=== PATIENT | female | born 1935 | race Caucasian/White ===

== ENCOUNTER 2017-05-03 11:38 | Inpatient (IN) | payer OTHER, MEDICARE ==
[2017-05-03] VITALS (15 sets, daily range): BP systolic 139–194; BP diastolic 64–99; PULSE 103–127; RESP 18–22; TEMP 97.6–98; O2SAT 86–95
[~2017-05-03] VITALS: Ht 165.1 cm; Wt 77.7 kg
[2017-05-03] MEDS ORDERED: methylPREDNISolone SOD SUCC 125 MG/2 ML VIAL IV PUSH ONE (12:15)
--- NOTE | 2017-05-03 12:16 | PD ---
HPI . Shortness of breath Chief Complaint: Respiratory Symptoms Time Seen by Provider: 12:02 Travel History International Travel<30 days: No Contact w/Intl Traveler<30days: No Traveled to known affect area: No History of Present Illness HPI This patient presents with about a week long history of cough and shortness of breath. She states that her primary care provider called her in a Z-Taurus taken and completed without relief. She states that her weakness and shortness of breath has been so severe that she has been confined to bed for the past several days. She has not noticed a fever. She does report some sputum production. She has not noted any modifying factors. [facility] Social History Tobacco Use: No Allergies-Medications (Allergen,Severity, Reaction): Coded Allergies: No Known Allergies (Verified Allergy, Unknown, 05/03/17) Reported Meds & Prescriptions Reported Meds & Active Scripts Active Reported Citalopram (Citalopram Hydrobromide) 10 Mg Tab 10 Mg PO DAILY Review of Systems Except as stated in HPI: all other systems reviewed are Neg General / Constitutional: No: Fever, Chills Cardiovascular: No: Chest Pain or Discomfort Respiratory: Positive: Cough, Shortness of Breath, Wheezing Neurologic: Positive: Weakness Physical Exam Narrative GENERAL: Awake and alert and in no acute distress. SKIN: Warm and dry. HEAD: Normocephalic/atraumatic. EYES: Pupils are equal. Extraocular movements are intact. NECK: Normal range of motion. CARDIOVASCULAR: Regular rate and rhythm. Sinus tachycardia at about 114. RESPIRATORY: Lungs are tight with diffuse inspiratory and expiratory wheezing. MUSCULOSKELETAL: Atraumatic. There is no peripheral edema. NEUROLOGICAL: Nonfocal. PSYCHIATRIC: Appropriate mood and affect. Data Data Last Documented VS Vital Signs Date Time Temp Pulse Resp B/P (MAP) Pulse Ox O2 Delivery O2 Flow Rate FiO2 05/03/17 15:15 118 20 157/74 (101) 94 Nasal Cannula 2.00 05/03/17 11:55 97.8 Orders Orders Complete Blood Count With Diff (05/03/17 12:09) Basic Metabolic Panel (Bmp) (05/03/17 12:09) B-Type Natriuretic Peptide (05/03/17 12:09) Troponin I (05/03/17 12:09) Blood Culture (05/03/17 12:09) Iv Access Insert/Monitor (05/03/17 12:09) Electrocardiogram (05/03/17 12:09) Ecg Monitoring (05/03/17 12:09) Oximetry (05/03/17 12:09) Oxygen Administration (05/03/17 12:09) Chest, Single Ap (05/03/17 12:09) Sodium Chloride 0.9% Flush (Ns Flush) (05/03/17 12:15) Methylprednisolone So Succ Inj (Solumedr (05/03/17 12:15) Albuterol-Ipratropium Neb (Duoneb Neb) (05/03/17 12:15) Albuterol-Ipratropium Neb (Duoneb Neb) (05/03/17 14:30) Resp Mdi/Instruction (05/03/17 14:18) Admit To Inpatient (05/03/17 ) Vital Signs (Adult) PJ.Q4H (05/03/17 16:10) Activity Oob With Assistance (05/03/17 16:10) Lunchroom Mother / Telemetry PJ.Q8H (05/03/17 16:10) Inpatient Certification (05/03/17 ) Admit Order (Ed Use Only) (05/03/17 ) Vital Signs (Adult) Q4H (05/03/17 16:10) Diet Heart Healthy (05/03/17 Dinner) Activity Oob With Assistance (05/03/17 16:10) Notify Dr: Other (05/03/17 16:10) Labs Laboratory Tests Test 05/03/17 12:25 White Blood Count 6.4 TH/MM3 Red Blood Count 5.26 MIL/MM3 Hemoglobin 14.8 GM/DL Hematocrit 45.9 % Mean Corpuscular Volume 87.3 FL Mean Corpuscular Hemoglobin 28.1 PG Mean Corpuscular Hemoglobin Concent 32.2 % Red Cell Distribution Width 12.9 % Platelet Count 179 TH/MM3 Mean Platelet Volume 9.1 FL Neutrophils (%) (Auto) 74.2 % Lymphocytes (%) (Auto) 13.8 % Monocytes (%) (Auto) 11.1 % Eosinophils (%) (Auto) 0.4 % Basophils (%) (Auto) 0.5 % Neutrophils # (Auto) 4.8 TH/MM3 Lymphocytes # (Auto) 0.9 TH/MM3 Monocytes # (Auto) 0.7 TH/MM3 Eosinophils # (Auto) 0.0 TH/MM3 Basophils # (Auto) 0.0 TH/MM3 CBC Comment DIFF FINAL Differential Comment Blood Urea Nitrogen 9 MG/DL Creatinine 0.54 MG/DL Random Glucose 118 MG/DL Calcium Level 8.7 MG/DL Sodium Level 136 MEQ/L Potassium Level 3.7 MEQ/L Chloride Level 98 MEQ/L Carbon Dioxide Level 31.1 MEQ/L Anion Gap 7 MEQ/L Estimat Glomerular Filtration Rate 109 ML/MIN Troponin I LESS THAN 0.02 NG/ML B-Type Natriuretic Peptide 93 PG/ML [facility] Medical Decision Making Medical Screen Exam Complete: Yes Emergency Medical Condition: Yes Medical Record Reviewed: Yes (this patient's only visits in our system have been for mammograms.) Interpretation(s) EKG shows a sinus rhythm with a rate of 101. No ST segment elevation or depression Differential Diagnosis Differential diagnosis of dyspnea includes but is not limited to congestive heart failure, pneumonia, wheezing, pneumothorax, pulmonary embolism Narrative Course This patient presents with a weeklong history of dyspnea. She is wheezing on exam. She will be treated with Solu-Medrol and stacked nebs. In the meantime, she will be evaluated for possible pneumonia for possible CHF. Last Impressions Chest X-Ray 05/03/17 1209 Signed Impressions: Service Date/Time: Wednesday, May 03, 2017 12:22 - CONCLUSION: Mild interstitial prominence at the bases. Kash Malagon MD CBC & BMP Diagram 05/03/17 12:25 Calcium Level 8.7 trop < 0.02 BNP 93 Patient was reexamined. Her sats are 92% on 2 L of oxygen. I turned off the oxygen and her sats held at about 92%. Her lungs are still tight but air movement is improved. Wheezing is louder. I have offered admission. The patient would prefer to be discharged to home. Therefore, I have ordered 3 more nebs. I will reassess her following the nebs. The patient's sats dropped shortly after her oxygen was discontinued. She was placed back on oxygen. She was reexamined following the second set of stacked nebs. Her air movement has improved but she is still retracting and is wheezing. Her oxygen saturation on 2 L of oxygen remained 92%. At this point, she is amenable to admission. Diagnosis Primary Impression: Bronchospasm Admitting Information Admitting Physician Requests: Admit Condition: Stable Huong Deleon MD May 03, 2017 12:16
[2017-05-03] MEDS: RESP: ALBUTEROL 2.5 MG/IPRATROPIUM 0.5 MG NEB (SCH) INH ×3 (12:17→14:38)
[2017-05-03] MEDS: SODIUM CHLORIDE 0.9% FLUSH 10 ML FLUSH IVF PRN (12:33)
[2017-05-03 12:44] LABS: AUTOMATED NEUTROPHIL # 4.8 TH/MM3 (1.8-7.7); BASOPHIL % 0.5 % (0.0-2.0); EOSINOPHIL % 0.4 % (0.0-4.0); HEMATOCRIT 45.9 % (35.0-46.0); HEMOGLOBIN 14.8 GM/DL (11.6-15.3); LYMPH % 13.8 % (9.0-44.0); LYMPHOCYTE # 0.9 TH/MM3 (1.0-4.8); MEAN CELL VOLUME 87.3 FL (80.0-100.0); MEAN CORPUSCULAR HEMOGLOBIN 28.1 PG (27.0-34.0); MEAN CORPUSCULAR HGB CONC 32.2 % (32.0-36.0); MEAN PLATELET VOLUME 9.1 FL (7.0-11.0); MONO % 11.1 % (0.0-8.0); MONOCYTE # 0.7 TH/MM3 (0-0.9); NEUT % 74.2 % (16.0-70.0); PLATELET COUNT 179 TH/MM3 (150-450); RED BLOOD COUNT 5.26 MIL/MM3 (4.00-5.30); RED CELL DISTRIBUTION WIDTH 12.9 % (11.6-17.2); WHITE BLOOD COUNT 6.4 TH/MM3 (4.0-11.0)
[2017-05-03 12:57] LABS: CHLORIDE 98 MEQ/L (98-107); SODIUM (NA) 136 MEQ/L (136-145)
[2017-05-03 12:59] LABS: CALCIUM 8.7 MG/DL (8.5-10.1)
[2017-05-03 13:00] LABS: BICARBONATE 31.1 MEQ/L (21.0-32.0); BLOOD UREA NITROGEN 9 MG/DL (7-18); GLUCOSE,RANDOM 118 MG/DL (74-106)
--- NOTE | 2017-05-03 13:00 | RADRPT ---
EXAM DATE/TIME: 05/03/2017 12:22 [facility] COMPARISON: No previous studies available for comparison. INDICATIONS : Short of breath and cough MEDICAL HISTORY : None. SURGICAL HISTORY : None. ENCOUNTER: Initial ACUITY: 1 week PAIN SCORE: 0/10 LOCATION: Bilateral chest FINDINGS: The heart size is normal. There is mild prominence of the interstitium in the bases. Lungs appear oth erwise clear. No effusion is seen. CONCLUSION: Mild interstitial prominence at the bases. Kash Malagon MD on May 03, 2017 at 12:57 Board Certified Radiologist. This report was verified electronically.
[2017-05-03 13:03] LABS: CREATININE 0.54 MG/DL (0.50-1.00); GLOMERULAR FILTRATION RATE 109 ML/MIN (>89)
[2017-05-03 13:08] LABS: TROPONIN I LESS THAN 0.02 NG/ML (0.02-0.05)
[2017-05-03] MEDS ORDERED: CITA10TA4 PO (13:16)
[2017-05-03] MEDS ORDERED: BISACODYL 10 MG SUPP RECTAL PRN (17:00)
[2017-05-03] MEDS ORDERED: NALOXONE HCL 0.4 MG/ML AMP IV PUSH PRN (17:00)
[2017-05-03] MEDS ORDERED: ONDANSETRON HCL 4 MG/2 ML VIAL IVP PRN (17:00)
[2017-05-03] MEDS ORDERED: ACETAMINOPHEN 325 MG TAB PO PRN (17:00)
[2017-05-03] MEDS ORDERED: SENNOSIDES 8.6 MG TAB PO PRN (17:00)
[2017-05-03] MEDS ORDERED: MAGNESIUM HYDROXIDE SUSP 30 ML CUP PO PRN (17:00)
[2017-05-03] MEDS ORDERED: PILL SPLITTER OTHER PRN (17:15)
--- NOTE | 2017-05-03 17:44 | HHI.HP ---
[facility] Primary Care Physician Priscilla Pastor Do, MD Admission Diagnosis Bronchitis with bronchospasm Diagnoses: (1) Bronchospasm Diagnosis: Principal Chief Complaint: Shortness of breath and productive cough Travel History International Travel<30 Days: No Contact w/Intl Traveler <30 Da: No Traveled to Known Affected Are: No History of Present Illness This is a pleasant 82-year-old female with a known medical history of breast cancer and COPD with history of tobacco use presented to the ED with complaints of worsening shortness of breath and productive cough. Patient states the symptoms have been occurring for two weeks now, has seen her primary care provider who prescribed her azithromycin. Patient completed her antibiotic last week and states that she felt even worse. Patient does admit to weakness, states that she's been lying in bed for several days. Lives at home with her . Denies any recent fever, chills, nausea, vomiting, diarrhea, chest pain, abdominal pain, dysuria. States she hasn't ate or drank much for the past week due to poor appetite and weakness. Review of Systems Constitutional: COMPLAINS OF: Chills, DENIES: Fever Eyes: DENIES: Blurred vision, Diplopia Ears, nose, mouth, throat: DENIES: Hearing loss Respiratory: COMPLAINS OF: Sputum production, Shortness of breath Cardiovascular: DENIES: Chest pain, Palpitations Gastrointestinal: DENIES: Abdominal pain, Black stools, Bloody stools, Constipation, Diarrhea, Nausea, Vomiting Integumentary: DENIES: Abnormal pigmentation Hematologic/lymphatic: DENIES: Bruising Immunologic/allergic: DENIES: Eczema Neurologic: DENIES: Abnormal gait Psychiatric: COMPLAINS OF: Anxiety Except as stated in HPI: all other systems reviewed are Neg Past Family Social History Past Medical History History of tobacco abuse History of COPD History of breast cancer, lumpectomy with no radiation or chemotherapy. Past Surgical History Left lumpectomy for history of breast cancer Reported Medications Active Reported Citalopram (Citalopram Hydrobromide) 10 Mg Tab 10 Mg PO DAILY for insomnia Allergies: Coded Allergies: No Known Allergies (Verified Allergy, Unknown, 05/03/17) Active Ordered Medications Current Medications Medications (Trade) Dose Ordered Sig/Erica Route Start Time Stop Time Status Last Admin (NS Flush) 2 ml UNSCH PRN IVF 05/03/17 12:15 05/03/17 12:33 (Tylenol) 650 mg Q4H PRN PO 05/03/17 17:00 (Zofran Inj) 4 mg Q6H PRN IVP 05/03/17 17:00 (Narcan Inj) 0.4 mg UNSCH PRN IV PUSH 05/03/17 17:00 (Kimmy-Colace) 1 tab BID PO 05/03/17 21:00 (Milk Of Magnesia Liq) 30 ml Q12H PRN PO 05/03/17 17:00 (Senokot) 17.2 mg Q12H PRN PO 05/03/17 17:00 (Dulcolax Supp) 10 mg DAILY PRN RECTAL 05/03/17 17:00 (CeleXA) 10 mg DAILY PO 05/04/17 09:00 (Pill Splitter) 1 ea UNSCH PRN OTHER 05/03/17 17:15 Family History Maternal medical history significant for diabetes. Father was healthy. Social History Patient denies any current tobacco use, states she quit smoking thirty years ago. Denies any alcohol or illicit drug use. Physical Exam Vital Signs Vital Signs Date Time Temp Pulse Resp B/P (MAP) Pulse Ox O2 Delivery O2 Flow Rate FiO2 05/03/17 16:21 97.6 122 22 143/81 (101) 93 Nasal Cannula 2.00 05/03/17 15:15 118 20 157/74 (101) 94 Nasal Cannula 2.00 05/03/17 15:02 Nasal Cannula 2.00 05/03/17 14:51 107 167/90 (115) 93 Nasal Cannula 2.00 05/03/17 14:35 86 Room Air 05/03/17 13:48 106 18 154/86 (108) 93 Nasal Cannula 2.00 05/03/17 12:45 105 20 167/78 (107) 93 Nasal Cannula 2.00 05/03/17 12:05 Nasal Cannula 2.00 05/03/17 12:05 93 Room Air 05/03/17 12:05 91 Room Air 05/03/17 11:55 97.8 114 18 194/84 (120) 88 05/03/17 11:40 103 20 169/99 (122) 94 Room Air Physical Exam GENERAL: Well-nourished, well-developed patient in NAD. On supplemental O2 SKIN: Warm and dry. No rash. HEAD: Normocephalic. Atraumatic. EYES: Pupils equal and round. No scleral icterus. No injection or drainage. ENT: No nasal bleeding or discharge. Mucous membranes pink and moist. NECK: Supple. Trachea midline. CARDIOVASCULAR: Tachycardic. S1, S2 noted. No murmur appreciated. RESPIRATORY: No accessory muscle use. Diffuse expiratory wheezing. Breath sounds equal bilaterally. GASTROINTESTINAL: Abdomen soft, non-tender, nondistended. Normoactive bowel sounds x4. MUSCULOSKELETAL: No obvious deformities. Extremities without clubbing, cyanosis , or edema. NEUROLOGICAL: Awake and alert. No obvious cranial nerve deficits. Motor grossly within normal limits. 5/5 muscle strength in bilateral upper and lower extremities. Normal speech. PSYCHIATRIC: Appropriate mood and affect; insight and judgment normal. Laboratory Laboratory Tests Test 05/03/17 12:25 White Blood Count 6.4 Red Blood Count 5.26 Hemoglobin 14.8 Hematocrit 45.9 Mean Corpuscular Volume 87.3 Mean Corpuscular Hemoglobin 28.1 Mean Corpuscular Hemoglobin Concent 32.2 Red Cell Distribution Width 12.9 Platelet Count 179 Mean Platelet Volume 9.1 Neutrophils (%) (Auto) 74.2 Lymphocytes (%) (Auto) 13.8 Monocytes (%) (Auto) 11.1 Eosinophils (%) (Auto) 0.4 Basophils (%) (Auto) 0.5 Neutrophils # (Auto) 4.8 Lymphocytes # (Auto) 0.9 Monocytes # (Auto) 0.7 Eosinophils # (Auto) 0.0 Basophils # (Auto) 0.0 CBC Comment DIFF FINAL Differential Comment Blood Urea Nitrogen 9 Creatinine 0.54 Random Glucose 118 Calcium Level 8.7 Sodium Level 136 Potassium Level 3.7 Chloride Level 98 Carbon Dioxide Level 31.1 Anion Gap 7 Estimat Glomerular Filtration Rate 109 Troponin I LESS THAN 0.02 B-Type Natriuretic Peptide 93 Date/Time Source Procedure Growth Status 05/03/17 12:25 Blood Peripheral Aerobic Blood Culture Pending Received 05/03/17 12:25 Blood Peripheral Anaerobic Blood Culture Pending Received Result Diagram: 05/03/17 1225 05/03/17 1225 Imaging Last Impressions Chest X-Ray 05/03/17 1209 Signed Impressions: Service Date/Time: Wednesday, May 03, 2017 12:22 - CONCLUSION: Mild interstitial prominence at the bases. Kash Malagon MD Septic Shock Reassessment Septic shock perfusion: reassessment completed Caprini VTE Risk Assessment Caprini VTE Risk Assessment: Mod/High Risk (score >= 2) Caprini Risk Assessment Model Point Value = 1 Point Value = 2 Point Value = 3 Point Value = 5 Age 41-60 Minor surgery BMI > 25 kg/m2 Swollen legs Varicose veins or History of unexplained or recurrent spontaneous Oral contraceptives or hormone replacement Sepsis (< 1 month) Serious lung disease, including pneumonia (< 1 month) Abnormal pulmonary function Acute myocardial infarction Congestive heart failure (< 1 month) History of inflammatory bowel disease Medical patient at bed rest Age 61-74 Arthroscopic surgery Major open surgery (> 45 min) Laparoscopic surgery (> 45 min) Malignancy Confined to bed (> 72 hours) Immobilizing plaster cast Central venous access Age >= 75 History of VTE Family history of VTE Factor V Leiden Prothrombin [id number] Lupus anticoagulant Anticardiolipin antibodies Elevated serum homocysteine Heparin-induced thrombocytopenia Other congenital or acquired thrombophilia Stroke (< 1 month) Elective arthroplasty Hip, pelvis, or leg fracture Acute spinal cord injury (< 1 month) Prophylaxis Regimen Total Risk Factor Score Risk Level Prophylaxis Regimen 0-1 Low Early ambulation 2 Moderate Order ONE of the following: *Sequential Compression Device (SCD) *Heparin 5000 units SQ BID 3-4 Higher Order ONE of the following medications: *Heparin 5000 units SQ TID *Enoxaparin/Lovenox 40 mg SQ daily (WT < 150 kg, CrCl > 30 mL/min) *Enoxaparin/Lovenox 30 mg SQ daily (WT < 150 kg, CrCl > 10-29 mL/min) *Enoxaparin/Lovenox 30 mg SQ BID (WT < 150 kg, CrCl > 30 mL/min) AND/OR *Sequential Compression Device (SCD) 5 or more Highest Order ONE of the following medications: *Heparin 5000 units SQ TID (Preferred with Epidurals) *Enoxaparin/Lovenox 40 mg SQ daily (WT < 150 kg, CrCl > 30 mL/min) *Enoxaparin/Lovenox 30 mg SQ daily (WT < 150 kg, CrCl > 10-29 mL/min) *Enoxaparin/Lovenox 30 mg SQ BID (WT < 150 kg, CrCl > 30 mL/min) AND *Sequential Compression Device (SCD) Assessment and Plan Problem List: (1) Bronchospasm ICD Code: J98.01 - Acute bronchospasm Status: Acute Plan: Rule out PE vs pneumonia vs acute bronchitis Patient has been placed on supplemental O2, 2 L nasal cannula. Chest x-ray reviewed showing mild interstitial prominence at the bases. Patient is afebrile. White blood cell within normal limits. CBC and BMP reviewed and essentially unremarkable. Repeat labs in a.m. BNP 93. Treated outpatient with azithromycin. Patient given one-time dose of Solu-Medrol 125 mg 1. Will start on DuoNeb's as needed and scheduled. Will continue IV steroids. Started on IV antibiotics. Monitor for infection. Dr. Gilbert recommendations for procalcitonin level r/o infection. Follow. Supplemental O2 as needed. Blood cultures ordered and pending. Follow growth. Tachycardia present, most likely due to dehydration, will start on IV fluids. Will check a d-dimer to rule out possibility of PE. Continue to follow. Continue cardiac telemetry. PT evaluation, appreciate input and recommendations. DVT prophylaxis: SCDs. Heparin. Physician Certification 2 Midnight Certification Type: Admission for Inpatient Services Order for Inpatient Services The services are ordered in accordance with Medicare regulations or non- Medicare payer requirements, as applicable. In the case of services not specified as inpatient-only, they are appropriately provided as inpatient services in accordance with the 2-midnight benchmark. Estimated LOS (days): 2 2 days is the estimated time the patient will need to remain in the hospital, assuming treatment plan goals are met and no additional complications. Post-Hospital Plan: Home Keya Callahan May 03, 2017 17:43
[2017-05-03] MEDS ORDERED: VANCOMYCIN INJ 1,000 MG in SODIUM CHLOR 0.9% 250 ML INJ 250 ML IV SCH (17:45)
[2017-05-03] MEDS ORDERED: Vancomycin Consult Pharmacy 1 EA OTHER SCH (17:45)
[2017-05-03] MEDS ORDERED: RESP: ALBUTEROL 2.5 MG/IPRATROPIUM 0.5 MG NEB (PRN) NEB (18:00)
[2017-05-03] MEDS ORDERED: VANCOMYCIN 1,500 MG/NS 500 ML IV SCH ×2 (18:00)
[2017-05-03] MEDS: LEVOFLOXACIN 750 MG PREMIX INJ 150 ML IV SCH (18:06)
[2017-05-03] MEDS: methylPREDNISolone SOD SUCC 40 MG/1 ML VIAL IV PUSH SCH (18:06)
[2017-05-03] MEDS: SODIUM CHLOR 0.9% 1000 ML INJ 1,000 ML IV SCH (18:07)
[2017-05-03] MEDS: RESP: ALBUTEROL 2.5 MG/IPRATROPIUM 0.5 MG NEB (SCH) NEB (19:25)
[2017-05-03] MEDS: DOCUSATE SODIUM 50 MG/SENNA 8.6 MG TAB PO SCH (20:10)
[2017-05-03] MEDS: HEPARIN SODIUM - SQ 10,000 UNITS/ML VIAL SQ SCH (20:11)
[2017-05-04] VITALS (9 sets, daily range): BP systolic 128–175; BP diastolic 70–89; PULSE 40–107; RESP 18–20; TEMP 96–99.3; O2SAT 90–95
[2017-05-04] MEDS: methylPREDNISolone SOD SUCC 40 MG/1 ML VIAL IV PUSH SCH ×4 (00:14→18:36)
[2017-05-04] MEDS ORDERED: cloNIDine HCL 0.1 MG TAB PO ONE (05:45)
[2017-05-04] MEDS ORDERED: RESP: ALBUTEROL 2.5 MG/IPRATROPIUM 0.5 MG NEB (PRN) NEB (05:45)
[2017-05-04] MEDS: SODIUM CHLOR 0.9% 1000 ML INJ 1,000 ML IV SCH (05:48)
[2017-05-04 06:45] LABS: AUTOMATED NEUTROPHIL # 3.8 TH/MM3 (1.8-7.7); EOSINOPHIL % 0.5 % (0.0-4.0); HEMATOCRIT 41.2 % (35.0-46.0); HEMOGLOBIN 13.4 GM/DL (11.6-15.3); LYMPH % 12.5 % (9.0-44.0); LYMPHOCYTE # 0.5 TH/MM3 (1.0-4.8); MEAN CELL VOLUME 86.2 FL (80.0-100.0); MEAN CORPUSCULAR HEMOGLOBIN 28.2 PG (27.0-34.0); MEAN CORPUSCULAR HGB CONC 32.7 % (32.0-36.0); MEAN PLATELET VOLUME 9.3 FL (7.0-11.0); MONO % 3.3 % (0.0-8.0); MONOCYTE # 0.1 TH/MM3 (0-0.9); NEUT % 83.7 % (16.0-70.0); PLATELET COUNT 171 TH/MM3 (150-450); RED BLOOD COUNT 4.78 MIL/MM3 (4.00-5.30); RED CELL DISTRIBUTION WIDTH 12.6 % (11.6-17.2); WHITE BLOOD COUNT 4.4 TH/MM3 (4.0-11.0)
[2017-05-04 06:56] LABS: BICARBONATE 31.2 MEQ/L (21.0-32.0); CALCIUM 8.2 MG/DL (8.5-10.1)
[2017-05-04 07:00] LABS: CREATININE 0.44 MG/DL (0.50-1.00)
[2017-05-04] MEDS: RESP: ALBUTEROL 2.5 MG/IPRATROPIUM 0.5 MG NEB (SCH) NEB ×3 (07:49→20:06)
[2017-05-04] MEDS: CITALOPRAM HYDROBROMIDE 20 MG TAB PO SCH (09:19)
[2017-05-04] MEDS: DOCUSATE SODIUM 50 MG/SENNA 8.6 MG TAB PO SCH ×2 (09:19→21:56)
[2017-05-04] MEDS: HEPARIN SODIUM - SQ 10,000 UNITS/ML VIAL SQ SCH ×2 (09:19→21:56)
--- NOTE | 2017-05-04 12:23 | HHI.PR ---
Subjective Remarks Patient seen today in follow for COPD with acute exacerbation for respiratory failure secondary hypoxemia Feels a bit better today. Objective Vitals Vital Signs Date Time Temp Pulse Resp B/P (MAP) Pulse Ox O2 Delivery O2 Flow Rate FiO2 05/04/17 08:00 97.4 96 20 166/89 (114) 94 05/04/17 07:30 92 Nasal Cannula 4.00 05/04/17 04:00 99.3 101 18 175/83 (113) 90 05/04/17 00:00 97.1 40 18 157/88 (111) 94 05/03/17 23:00 127 05/03/17 22:00 97.9 118 20 156/92 (113) 90 05/03/17 20:00 92 Nasal Cannula 3.00 05/03/17 19:25 88 Nasal Cannula 3.00 05/03/17 18:56 98.0 125 18 174/80 (111) 92 05/03/17 18:48 125 22 139/64 (89) 94 05/03/17 16:21 97.6 122 22 143/81 (101) 93 Nasal Cannula 2.00 05/03/17 15:15 118 20 157/74 (101) 94 Nasal Cannula 2.00 05/03/17 15:02 Nasal Cannula 2.00 05/03/17 15:00 95 Nasal Cannula 2.00 05/03/17 14:51 107 167/90 (115) 93 Nasal Cannula 2.00 05/03/17 14:35 86 Room Air 05/03/17 13:48 106 18 154/86 (108) 93 Nasal Cannula 2.00 05/03/17 12:45 105 20 167/78 (107) 93 Nasal Cannula 2.00 I/O 05/03/17 05/03/17 05/03/17 05/04/17 05/04/17 05/04/17 07:00 15:00 23:00 07:00 15:00 23:00 Intake Total 1906 ml 755 ml Output Total 300 ml Balance 1906 ml 755 ml -300 ml Intake Oral 240 ml IV Total 1906 ml 515 ml Output Urine Total 300 ml # Voids 1 # Bowel Movements 0 Result Diagram: 05/04/1744405/04/17444 Objective Remarks GENERAL: This is a well-nourished, well-developed patient, in no apparent distress. CARDIOVASCULAR: Regular rate and rhythm without murmurs, gallops, or rubs. RESPIRATORY: Scattered wheezes without rhonchi GASTROINTESTINAL: Abdomen soft, non-tender, nondistended. Normal active bowel sounds MUSCULOSKELETAL: Extremities without clubbing, cyanosis, or edema. NEURO: Alert & Oriented x4 to person, place, time, situation. Moves all ext x4 A/P Problem List: (1) COPD (chronic obstructive pulmonary disease) ICD Code: J44.9 - Chronic obstructive pulmonary disease, unspecified Plan: Likely with pneumonia and bronchitis continue IV Levaquin, wean IV steroids Pulmonary toilet with bronchodilators We'll check walk test Discharge Planning Likely discharge in a.m. on oral antibiotics and oral steroids Margo Thomason MD May 04, 2017 12:23
--- NOTE | 2017-05-04 13:08 | RADRPT ---
EXAM DATE/TIME: 05/04/2017 12:16 [facility] COMPARISON: CHEST SINGLE AP, May 03, 2017, 12:22. INDICATIONS : Dyspnea. DOSE: 8.5 mCi Tc99m MAA IV 1.7 mCi Tc99m DTPA aerosol MEDICAL HISTORY : Carcinoma, breast. Chronic obstructive pulmonary disease. SURGICAL HISTORY : Lumpectomy. ENCOUNTER: Initial ACUITY: 1 day PAIN SCALE: 0/10 LOCATION: chest TECHNIQUE: Following five minutes of tidal breathing of DTPA aerosol, planar images of the lungs were performed in eight projections. The patient was then injected with MAA, and eight-view perfusio n scan was performed. FINDINGS: There is a inhomogeneous pattern of aerosol delivery to the periphery of both lungs. No focal ventil atory defects are seen. The perfusion lung scan demonstrates a homogenous pattern of uptake in both lungs. No segmental or s ubsegmental defects are seen. CONCLUSION: Low probability of pulmonary embolization Julio Arthur MD on May 04, 2017 at 13:03 Board Certified Radiologist. This report was verified electronically.
[2017-05-04] MEDS: LEVOFLOXACIN 750 MG PREMIX INJ 150 ML IV SCH (18:36)
[2017-05-05] MEDS: methylPREDNISolone SOD SUCC 40 MG/1 ML VIAL IV PUSH SCH ×3 (00:20→13:56)
[2017-05-05] MEDS: SODIUM CHLORIDE 0.9% FLUSH 10 ML FLUSH IVF PRN ×2 (00:20→06:12)
--- NOTE | 2017-05-05 01:19 | EKG ---
Date Performed: 05/03/2017 Time Performed: 12:15:39 PTAGE: 82 years EKG: SINUS TACHYCARDIA ABNORMAL RHYTHM ECG NO PREVIOUS TRACING DOCTOR: Dominguez Rawls Interpretating Date/Time 05/05/2017 01:16:59
[2017-05-05 04:00] VITALS: BP 167/101; PULSE 93
[2017-05-05] MEDS ORDERED: cloNIDine HCL 0.1 MG TAB PO ONE (05:45)
[2017-05-05 07:37] VITALS: O2SAT 94
[2017-05-05] MEDS: RESP: ALBUTEROL 2.5 MG/IPRATROPIUM 0.5 MG NEB (SCH) NEB ×2 (07:37→14:13)
[2017-05-05 07:50] VITALS: BP 170/83; PULSE 88; RESP 20; TEMP 97; O2SAT 92
[2017-05-05] MEDS ORDERED: OXYGENDME NAS.CANULA (08:35)
[2017-05-05] MEDS: CITALOPRAM HYDROBROMIDE 20 MG TAB PO SCH (09:33)
[2017-05-05] MEDS: HEPARIN SODIUM - SQ 10,000 UNITS/ML VIAL SQ SCH (09:34)
[2017-05-05] MEDS: DOCUSATE SODIUM 50 MG/SENNA 8.6 MG TAB PO SCH (09:34)
[2017-05-05 11:00] VITALS: BP 170/82; PULSE 93; RESP 20; TEMP 97.5; O2SAT 95
[2017-05-05] MEDS ORDERED: WALKER WHEELS/F1 MIS (11:10)
--- NOTE | 2017-05-05 11:45 | HHI.FF ---
Face to Face Verification Diagnosis: (1) Physical deconditioning (2) COPD (chronic obstructive pulmonary disease) Physical Therapy Order: Evaluate and Treat, Improve ambulation Home Health Nursing Order: Medical education Oxygen administration education I have seen patient Sosa Galindo on 05/05/17. My clinical findings support the need for the requested home health care services because: Patient has SOB I certify that my clinical findings support that this patient is homebound because: Hx COPD- exertion dyspnea/weakness Margo Thomason MD May 05, 2017 11:45
[2017-05-05] MEDS ORDERED: PRED20 PO (11:48)
[2017-05-05] MEDS ORDERED: LEVO500T8 PO (11:48)
[2017-05-05] MEDS ORDERED: NEBULIZER1 MI1 (11:50)
[2017-05-05] MEDS ORDERED: Albuterol-Ipratropium Neb NEB (11:50)
--- NOTE | 2017-05-05 11:52 | HHI.DS ---
Discharge Summary Admission Date May 03, 2017 at 16:11 Discharge Date: May 05, 2017 Admitting Diagnosis Bronchitis with bronchospasm (1) COPD (chronic obstructive pulmonary disease) ICD Code: J44.9 - Chronic obstructive pulmonary disease, unspecified Procedures None Brief History - From Admission This is a pleasant 82-year-old female with a known medical history of breast cancer and COPD with history of tobacco use presented to the ED with complaints of worsening shortness of breath and productive cough. Patient states the symptoms have been occurring for two weeks now, has seen her primary care provider who prescribed her azithromycin. Patient completed her antibiotic last week and states that she felt even worse. Patient does admit to weakness, states that she's been lying in bed for several days. Lives at home with her . Denies any recent fever, chills, nausea, vomiting, diarrhea, chest pain, abdominal pain, dysuria. States she hasn't ate or drank much for the past week due to poor appetite and weakness. CBC/BMP: 05/04/17 0445 05/04/17 0445 Significant Findings Laboratory Tests Test 05/03/17 12:25 05/03/17 19:35 05/03/17 21:47 05/04/17 04:45 Neutrophils (%) (Auto) 74.2 % (16.0-70.0) 83.7 % (16.0-70.0) Monocytes (%) (Auto) 11.1 % (0.0-8.0) Lymphocytes # (Auto) 0.9 TH/MM3 (1.0-4.8) 0.5 TH/MM3 (1.0-4.8) Random Glucose 118 MG/DL (74-106) 147 MG/DL (74-106) Troponin I LESS THAN 0.02 NG/ML D-Dimer Quantitative (PE/DVT) 0.65 MG/L FEU (0.00-0.50) Creatinine 0.44 MG/DL (0.50-1.00) Calcium Level 8.2 MG/DL (8.5-10.1) PE at Discharge GENERAL: This is a well-nourished, well-developed patient, in no apparent distress. CARDIOVASCULAR: Regular rate and rhythm without murmurs, gallops, or rubs. RESPIRATORY: Scattered wheezes without rhonchi GASTROINTESTINAL: Abdomen soft, non-tender, nondistended. Normal active bowel sounds MUSCULOSKELETAL: Extremities without clubbing, cyanosis, or edema. NEURO: Alert & Oriented x4 to person, place, time, situation. Moves all ext x4 Pt update on day of discharge Seen today in follow-up for COPD exacerbation, doing better. No new complaints. Discharge plans discussed with patient Hospital Course This patient is an 82-year-old female was evaluated and treated for shortness of breath secondary to COPD exacerbation. She did require oxygen and this was arranged. She was given steroids IV as well as nebulized bronchodilators. She was also given IV antibiotics. She improved dramatically. Patient education was provided and she was discharged home Pt Condition on Discharge: Good Discharge Disposition: Discharge Home Discharge Time: <= 30 minutes Discharge Instructions DIET: Follow Instructions for: As Tolerated, No Restrictions Activities you can perform: Regular-No Restrictions Follow up Referrals: PCP Follow-up New Medications: Levofloxacin (Levofloxacin) 500 Mg Tablet 500 MG PO DAILY for Infection, #7 TAB 0 Refills Nebulizer (Nebulizer) 1 Mis Mis EA .XX DIRECTED for Breathing Treatment, #1 1 Refill Oxygen (O2) (Oxygen (O2)) Device LITER JOSE MANUEL.CANULA CONTINUOUS for Prevent Hypoxemia, #4 Oxygen Concentrator Portable Gaseous 4 L/min via Nasal Canula Continuous For 99 months Prednisone (Prednisone) 20 Mg Tab 20 MG PO DIRECTED for Inflammation, #18 TAB 0 Refills 40 MG twice a day x 3 days, then 20 MG daily x 3 days, then 10 MG daily x 3 days Walker with Front Wheels (Walker with Front Wheels) 1 Mis Mis EA .XX DIRECTED, #1 0 Refills [Albuterol-Ipratropium Neb] () 1 AMPULE NEBU 1 AMPULE NEB Q6HR WHILE AWAKE NEB PRN for DYSPNEA, #60 AMPULE Continued Medications: Citalopram (Citalopram) 10 Mg Tab 10 MG PO DAILY for Control Depression, #30 TAB 0 Refills Margo Thomason MD May 05, 2017 11:52
[2017-05-05 15:00] VITALS: BP 168/78; PULSE 97; RESP 20; TEMP 97.6; O2SAT 92
[2017-05-06] MEDS ORDERED: PHARMACY ORDERED LAB ONE (17:45)
== END 2017-05-05 16:44 | disposition home or self-care (01) | DRG 193 ==
LOC: PHED 11:38 → PHEDA 16:11 → PH3B 18:44
PROVIDERS: ADMIT Hospitalist; ATTEND Hospitalist
DX: J18.9 Pneumonia, unspecified organism (principal); J96.91 Respiratory failure, unspecified with hypoxia; J44.0 Chronic obstructive pulmonary disease with (acute) lower respiratory infection; J44.1 Chronic obstructive pulmonary disease with (acute) exacerbation; J98.01 Acute bronchospasm; R00.0 Tachycardia, unspecified; E86.0 Dehydration; Z85.3 Personal history of malignant neoplasm of breast; Z87.891 Personal history of nicotine dependence
CPT/HCPCS: 71045; 78582; 80048; 83880; 84145; 84484; 85025; 85379; 87040; 93005; 94618; 94640; 94664; 96374; A9540; A9567; J1644; J1956; J2920; J2930; J3370; J7030; J7040

== ENCOUNTER → 2017-06-14 | Outpatient (CLI) | payer OTHER ==
[~2017-06-14] MED LIST: Albuterol-Ipratropium Neb NEB; CITA10TA4 PO; LEVO500T8 PO; NEBULIZER1 MI1; OXYGENDME NAS.CANULA; PRED20 PO; WALKER WHEELS/F1 MIS
--- NOTE | 2017-06-22 08:56 | RSPPFT ---
DATE OF PROCEDURE: 06/14/17 COMMENTS: VOLUMES DYNAMIC: FVC mildly reduced; FEV1 severely reduced. STATIC: FRC and RV severely increased; TLC mildly increased. FLOWS: FEV1% and FEF 25-75 severely reduced. DIFFUSION: Severely reduced. FLOW VOLUME LOOP: Pattern of variable intrathoracic airways obstruction. IMPRESSION: Severe obstructive ventilatory defect with reduction in diffusion consistent with emphysema. Severe hyperinflation and very insignificant change post-bronchodilator.
== END ==
LOC: PHRSP 10:30
PROVIDERS: ATTEND Internal Medicine
DX: J44.9 Chronic obstructive pulmonary disease, unspecified (principal); R06.02 Shortness of breath
CPT/HCPCS: 94060; 94618; 94726; 94729

== ENCOUNTER 2017-07-15 07:42 | Day surgery (SDC) | payer OTHER ==
[2017-07-15] VITALS (8 sets, daily range): BP systolic 118–154; BP diastolic 49–87; PULSE 65–90; RESP 18–20; TEMP 97.6–97.7; O2SAT 93–97
[~2017-07-15] VITALS: Ht 160 cm; Wt 79.1 kg
[2017-07-15] MEDS ORDERED: FLUT1INH INH (08:21)
[2017-07-15] MEDS ORDERED: SODIUM CHLOR 0.9% 1000 ML INJ 1,000 ML IV SCH (09:00)
[2017-07-15] MEDS ORDERED: MIDAZOLAM HCL 2 MG/2 ML VIAL ONE (09:12)
--- NOTE | 2017-07-15 10:07 | PD.RAD ---
Post CT Procedure Prog Note Pre Procedure Diagnosis: (1) Mass of upper lobe of left lung Post Procedure Diagnosis: (1) Mass of upper lobe of left lung Procedure Date: Jul 15, 2017 Supervising Radiologist: Kash Patel Estimated blood loss: minimal Anesthesia: Conscious Sedation Plan of Activity Patient to Unit: ROPU Patient Condition: Good See PACS Report for procedural detail/treatment Biopsy Imaging Guidance: CT Side: Left Biopsy Procedure: Lung Level: left upper lobe Specimen: Core Biopsy Additional Detail: 5 20G cores obtained. Plan to ROPU for monitoring and cxr. Kash Patel MD Jul 15, 2017 10:07
[2017-07-15] MEDS ORDERED: oxyCODONE/ACETAMINOPHEN 5 MG/325 MG TAB PO PRN (10:15)
--- NOTE | 2017-07-15 10:33 | RADRPT ---
EXAM DATE/TIME: 07/15/2017 09:41 [facility] COMPARISON: No previous studies available for comparison. However, correlated with outside chest CT and PET CT ex am. INDICATIONS : Left lung mass SEDATION TIME: 30 minutes BIOPSY SITE: Left lung MEDICATION(S): 1.) 2 mg midazolam (Versed) IV 2.) 100 mcg fentanyl (Sublimaze) IV Vancomycin within 2 hrs of procedure, Ancef (or alternative) within 1 hr of procedure start. DEVICE(S): 1.) 19 gauge INTRODUCER 2.) 20 gauge Temno core biopsy needle MEDICAL HISTORY : Carcinoma, breast. SURGICAL HISTORY : Appendectomy. Hysterectomy. ENCOUNTER: Initial ACUITY: 1 day PAIN SCORE: 0/10 LOCATION: Left chest A total of five core specimen(s) were obtained and sent to the laboratory for pathologic evaluation. PROCEDURE: 1. CT guided lung biopsy. Prior to the procedure informed consent was obtained. Any appropriate prior imaging studies were rev iewed. Using automated exposure control and adjustment of the mA and/or kV according to patient size, radiation dose was kept as low as reasonably achievable to obtain optimal diagnostic quality images. DICOM format image data is available electronically for review and comparison. The site was prepped in a sterile fashion. Full sterile technique was used, including cap, mask, katie rile gloves and gown and a large sterile sheet. Hand hygiene and 2% chlorhexidine and/or betadine/al cohol prep was utilized per protocol for cutaneous antisepsis. The skin and subcutaneous tissues wer e infiltrated with local anesthetic solution. With CT guidance the left upper lobe lung mass was localized. Biopsy was performed using the prescrib ed needle as above. Adequate hemostasis was obtained with compression at the puncture site. Follow-up CT scan reveals no pneumothorax or significant acute complication. Conscious sedation was performed with the prescribed dosages and duration as above in the presence of an independent trained radiology nurse to assist in the monitoring of the patient. EKG and oximetry remained stable throughout the procedure. The patient tolerated the procedure well and there were no complications. The patient was sent to Radiology Outpatient Unit in stable condition. CONCLUSION: Uncomplicated CT guided biopsy of the left upper lobe lung mass. Kash Patel MD on July 15, 2017 at 10:30 Board Certified Radiologist. This report was verified electronically.
--- NOTE | 2017-07-15 11:38 | RADRPT ---
EXAM DATE/TIME: 07/15/2017 11:04 [facility] COMPARISON: No previous studies available for comparison. INDICATIONS : Evaluate for pneumothorax post thorcentesis MEDICAL HISTORY : Venous insufficiency. Carcinoma, breast. Left lung mass SURGICAL HISTORY : Appendectomy. Hysterectomy ENCOUNTER: Subsequent ACUITY: 1 day PAIN SCORE: 0/10 LOCATION: chest FINDINGS: Upright expiratory view of the chest demonstrates no pneumothorax following recent left lung mass bio psy. There is parenchymal opacity in the left upper lobe representing the lung mass. CONCLUSION: No pneumothorax following recent left lung biopsy. Kash Patel MD on July 15, 2017 at 11:34 Board Certified Radiologist. This report was verified electronically.
--- NOTE | 2017-07-15 13:03 | RADRPT ---
EXAM DATE/TIME: 07/15/2017 11:56 [facility] COMPARISON: CHEST EXPIRATION ONLY, July 15, 2017, 11:04. INDICATIONS : Post chest biopsy. MEDICAL HISTORY : Venous insufficiency. Carcinoma, breast. Left lung mass SURGICAL HISTORY : Appendectomy. Hysterectomy ENCOUNTER: Subsequent ACUITY: 1 day PAIN SCORE: 0/10 LOCATION: Left chest FINDINGS: A single frontal expiratory view of the chest was performed. The lungs are symmetrically aerated wit h no pneumothorax. Nodular densities in the left upper and lower lung are unchanged. Right lung remai ns clear. Heart size is normal. Osseous structures are intact CONCLUSION: 1. No pneumothorax. 2. Stable nodular densities in the left hemithorax. Robbie Sheriff MD on July 15, 2017 at 12:58 Board Certified Radiologist. This report was verified electronically.
== END 2017-07-15 14:15 | disposition home or self-care (01) ==
LOC: HRAD 07:42 → HRIP 07:46 → HRAD 14:15
PROVIDERS: ATTEND Internal Medicine
DX: C34.92 Malignant neoplasm of unspecified part of left bronchus or lung (principal); I87.2 Venous insufficiency (chronic) (peripheral); Z85.3 Personal history of malignant neoplasm of breast; Z87.891 Personal history of nicotine dependence
CPT/HCPCS: 32405; 71045; 77012; 88305; 88341; 88342; 99152; 99153; J2250; J3010; J7030

== ENCOUNTER 2017-09-07 18:27 | Emergency (ER) | payer OTHER ==
[~2017-09-07 18:27] MED LIST changes: +FLUT1INH INH; -LEVO500T8 PO
[2017-09-07 18:35] VITALS: BP 195/89; PULSE 104; RESP 22; O2SAT 90
[2017-09-07 18:59] VITALS: BP 188/74; PULSE 87; O2SAT 100
[2017-09-07] MEDS ORDERED: LABETALOL HCL 100 MG/20 ML VIAL IV PUSH ONE (19:15)
[2017-09-07] MEDS ORDERED: RESP: ALBUTEROL 2.5 MG/IPRATROPIUM 0.5 MG NEB (SCH) NEB ONE (19:15)
--- NOTE | 2017-09-07 19:20 | PD ---
HPI Chief Complaint: Hypertension Time Seen by Provider: 18:53 Travel History International Travel<30 days: No Contact w/Intl Traveler<30days: No Traveled to known affect area: No History of Present Illness HPI The patient is a 82-year-old female who presents to the emergency department from her radiation oncologist office for evaluation of elevated blood pressure. The patient has a recent diagnosis of lung carcinoma and underwent mapping for radiation therapy earlier today. The patient states her blood pressure was elevated in the 180s and 190, she states she was nervous, anxious, and frustrated with the mapping process. The patient states her blood pressures normally normal at Dr. Kilgore's office. Patient also states she has a follow-up appointment tomorrow with her primary physician Dr. Thomas. The patient does have a history of COPD that is chronic and is on oxygen 2 L via nasal cannula. She also states she does nebulizer throughout the day and is scheduled for nebulizer now. She denies any acute headache, chest pain, shortness of breath, nausea, vomiting, or focal deficits. She does have a history of mild bilateral lower extremity edema which is chronic. Symptoms are mild. PFSH Past Medical History Arthritis: Yes Anxiety: Yes Depression: Yes Cancer: Yes (Left breast lumpectomy) Cardiovascular Problems: No COPD: Yes Diabetes: No Endocrine: No Genitourinary: Yes (Freq) Hepatitis: No Immune Disorder: No Musculoskeletal: Yes (arthritis) Neurologic: Yes Psychiatric: Yes (anxiety) Reproductive: No Respiratory: Yes (COPD, lung mass, Continuous O2 2 L NC) Immunizations Current: No Thyroid Disease: No Past Surgical History Abdominal Surgery: No AICD: No Appendectomy: Yes Cardiac Surgery: No Gynecologic Surgery: Yes (total Hysterectomy) Hysterectomy: Yes Joint Replacement: No Pacemaker: No Thoracic Surgery: No Other Surgery: Yes (l breast lumpectomy) Social History Alcohol Use: No Tobacco Use: No Substance Use: No Allergies-Medications (Allergen,Severity, Reaction): Coded Allergies: Iodinated Contrast- Oral and IV Dye (Verified Allergy, Severe, 07/15/17) 35 years turned and almost . Reported Meds & Prescriptions Reported Meds & Active Scripts Active Nebulizer 1 Mis Mis Ea .XX DIRECTED [Albuterol-Ipratropium Neb] 1 AMPULE Nebu 1 Ampule NEB Q6HR WHILE AWAKE NEB PRN Prednisone 20 Mg Tab 20 Mg PO DIRECTED 40 MG twice a day x 3 days, then 20 MG daily x 3 days, then 10 MG daily x 3 days Walker with Front Wheels (Device) 1 Mis Mis Ea .XX DIRECTED Oxygen (O2) Device Liter JOSE MANUEL.CANULA CONTINUOUS Oxygen Concentrator Portable Gaseous 4 L/min via Nasal Canula Continuous For 99 months Reported Breo Ellipta Inh (Fluticasone/Vilanterol) 100-25 Mcg/Act Inh 1 Puff INH DAILY Use daily at the same time. Citalopram (Citalopram Hydrobromide) 10 Mg Tab 10 Mg PO DAILY Review of Systems Except as stated in HPI: all other systems reviewed are Neg General / Constitutional: No: Fever HENT: No: Headaches, Lightheadedness Cardiovascular: No: Chest Pain or Discomfort Respiratory: Positive: Wheezing (With history of COPD on oxygen chronically), No: Shortness of Breath Gastrointestinal: No: Nausea, Vomiting, Abdominal Pain Musculoskeletal: Positive: Edema Neurologic: No: Weakness, Dizziness Physical Exam Narrative GENERAL: Awake, alert, pleasant 82-year-old female who appears her stated age and is in no acute respiratory distress. SKIN: Focused skin assessment warm/dry. HEAD: Atraumatic. Normocephalic. EYES: No injection or drainage. ENT: No nasal bleeding or discharge. Mucous membranes pink and moist. NECK: Trachea midline. No JVD. CARDIOVASCULAR: Regular, tachycardic with a heart rate of 102. RESPIRATORY: No accessory muscle use. Prolonged expiratory phase with wheezing noted. GASTROINTESTINAL: Abdomen soft, non-tender, nondistended. Hepatic and splenic margins not palpable. MUSCULOSKELETAL: No obvious deformities. No clubbing. No cyanosis. Bilateral lower extremity mild pitting edema. NEUROLOGICAL: Awake and alert. No obvious cranial nerve deficits. Motor grossly within normal limits. Normal speech. Nonfocal. Oriented 4. Follows commands without difficulty. PSYCHIATRIC: Appropriate mood and affect; insight and judgment normal. Data Data Last Documented VS Vital Signs Date Time Temp Pulse Resp B/P (MAP) Pulse Ox O2 Delivery O2 Flow Rate FiO2 09/07/17 20:16 75 20 154/69 (97) 98 Nasal Cannula 2.00 Orders Orders Labetalol Inj (Trandate Inj) (09/07/17 19:15) Albuterol-Ipratropium Neb (Duoneb Neb) (09/07/17 19:15) Ed Discharge Order (09/07/17 21:27) [facility] Medical Decision Making Medical Screen Exam Complete: Yes Emergency Medical Condition: Yes Medical Record Reviewed: Yes Differential Diagnosis Differential diagnosis includes hypertension, hypertensive urgency, hypertensive emergency, stress reaction, adjustment reaction, anxiety. Narrative Course The patient states she normally has normal blood pressure at her physician's office, however, was anxious prior to the mapping process today. She was advised to take an Ativan prior to going to the mapping sequence, however, did not take the Ativan. She does state she was somewhat anxious but denies any headache, chest pain, shortness of breath, nausea, vomiting, or acute focal deficits. After discussion was agreed we give the patient 1 dose of antihypertensive medication to evaluate if her blood pressure came down as well as her DuoNeb that is scheduled for this evening. If her blood pressure responds appropriately she will be discharged home to follow-up with her primary physician, Dr. Thomas, tomorrow as scheduled. She does state she has had blood work done recently does not want blood work performed today. The patient' s blood pressure improved with a systolic in 150s and a diastolic in the 70s. The patient was asymptomatic. After discussion it was agreed the patient would be discharged home and follow-up with her primary physician tomorrow. She is advised to return if symptoms worsen or progress. Diagnosis Primary Impression: Hypertension Qualified Codes: I10 - Essential (primary) hypertension Patient Instructions: General Instructions Additional Instructions: Follow-up with your primary physician. Return if symptoms worsen or progress. Follow-up with Dr. Thomas tomorrow as scheduled. Disposition: 01 DISCHARGE HOME Condition: Stable Srini Macdonald MD Sep 07, 2017 19:19
[2017-09-07 19:23] VITALS: O2SAT 99
[2017-09-07 20:16] VITALS: BP 154/69; PULSE 75; RESP 20; O2SAT 98
== END 2017-09-07 21:51 | disposition home or self-care (01) ==
LOC: NEPE 18:27
DX: I10 Essential (primary) hypertension (principal); C34.90 Malignant neoplasm of unspecified part of unspecified bronchus or lung; J44.9 Chronic obstructive pulmonary disease, unspecified; R60.0 Localized edema; F41.9 Anxiety disorder, unspecified; F32.9 Major depressive disorder, single episode, unspecified; M19.90 Unspecified osteoarthritis, unspecified site
CPT/HCPCS: 94664; 96374

== ENCOUNTER 2017-09-23 06:36 | Day surgery (SDC) | payer OTHER ==
[~2017-09-23] VITALS: Ht 160 cm; Wt 81.8 kg
[2017-09-23] MEDS ORDERED: LORA0.5T PO (07:45)
[2017-09-23 07:56] VITALS: BP 184/95; PULSE 89; RESP 20; TEMP 97.8; O2SAT 94
[2017-09-23] MEDS ORDERED: ceFAZolin 2 GM PREMIX 50 ML - implanted port/tunneled catheter insertion IV SCH (08:00)
[2017-09-23] MEDS ORDERED: SODIUM CHLORIDE 0.9% 1000 ML IV SCH (08:00)
[2017-09-23] MEDS ORDERED: VANCOMYCIN 1000 MG/NS 250 ML - implanted port/tunneled catheter IV SCH ×2 (08:00)
[2017-09-23] MEDS ORDERED: LIDOCAINE 1%/EPINEPHrine 1:100,000 SOLN 30 ML VIAL ONE (08:07)
[2017-09-23 08:25] LABS: PROTHROMBIN TIME - PATIENT 10.5 SEC (9.8-11.6)
[2017-09-23] MEDS ORDERED: MIDAZOLAM HCL 5 MG/5 ML VIAL ONE (08:43)
[2017-09-23] MEDS ORDERED: fentaNYL CITRATE 250 MCG/5 ML AMP ONE (08:43)
--- NOTE | 2017-09-23 09:22 | PD.RAD ---
Post Procedure Progress Note Pre Procedure Diagnosis: (1) Mass of upper lobe of left lung Post Procedure Diagnosis: (1) Mass of upper lobe of left lung Procedure Date: Sep 23, 2017 Supervising Radiologist: Dorian Seaman Proceduralist/Assist: RT Ken(R), Other Anesthesia: Conscious Sedation Plan of Activity Patient to Unit: ROPU Patient Condition: Good See PACS Report for procedural detail/treatment Dorian Seaman MD Sep 23, 2017 09:22
[2017-09-23 09:30] VITALS: BP 144/69; PULSE 105; RESP 18; TEMP 98.3; O2SAT 93
[2017-09-23 09:45] VITALS: BP 144/74; PULSE 93; RESP 20; O2SAT 97
[2017-09-23 10:15] VITALS: BP 137/75; PULSE 90; RESP 20; O2SAT 96
[2017-09-23 10:45] VITALS: BP 127/43; PULSE 88; RESP 20; O2SAT 97
--- NOTE | 2017-09-23 14:46 | RADRPT ---
EXAM DATE: 09/23/2017 9:34 AM EDT AGE/SEX: 82 years / Female INDICATIONS: Patient presents with lung cancer in need of port placement for treatment. CLINICAL DATA: This is the patient's initial encounter. Patient reports that signs and symptoms have been present for 3 months and indicates a pain score of 1/10. MEDICAL/SURGICAL HISTORY: Carcinoma, lung. Chronic obstructive pulmonary disease. Anxiety Alvino endectomy. Hysterectomy. Tonsillectomy. Lumpectomy COMPARISON: No prior exams available for comparison. FLUORO TIME (min): .21 IMAGE SERIES: SEDATION TIME (min): 30 MEDICATION(S): 3mg midazolam (Versed) IV 150mcg fentanyl (Sublimaze) IV DEVICE(S): Right 8F Power Port . . PROCEDURE : 1. Continuous pulse oximetry and EKG monitoring. 2. Intravenous conscious sedation. 3. Ultrasound guidance for venous access. 4. Fluoroscopic guided implantable central venous port placement. The patient was placed supine. The neck was prepped in sterile fashion. Full sterile technique was u sed, including cap, mask, sterile gloves and gown, and a large sterile sheet. Hand hygiene and 2% ch lorhexidine Betadine was utilized per protocol for cutaneous antisepsis with appropriate dry time for site. Sterile gel and sterile probe cover were utilized for ultrasound guidance. The skin and sub cutaneous tissues were infiltrated with local anesthetic solution. Under direct ultrasound guidance, central venous access was accomplished in the targeted vessel. The ultrasound images depicting access guidance were stored and saved to PACS for permanent record. A s ubcutaneous pocket was created using blunt dissection. The port was introduced to the pocket. The c atheter tubing was fed through a subcutaneous tunnel to the venotomy site. The catheter tubing was c ut to a suitable length and then was introduced through a valved Peel-Away sheath and positioned with catheter tubing tip at the cavo-atrial junction level. The pocket incision was closed with subcutic ular Vicryl suture. Steri-Strips were applied. The port was flushed and locked with heparin solutio n per protocol. Sterile dressing was applied to the site. The patient tolerated the procedure well. Conscious sedation was performed with the prescribed dosages and duration as above in the presence of an independent trained radiology nurse to assist in the monitoring of the patient. EKG and oximetry remained stable throughout the procedure. The patient tolerated the procedure well and there were no complications. The patient was sent to post anesthesia recovery in stable condition. CONCLUSION: 1. Uncomplicated ultrasound and fluoroscopic guided implanted central venous port catheter placement as described in detail above. An 8 Stateless Power port was placed. Electronically signed by: Dorian Seaman MD 09/23/2017 2:44 PM EDT
== END 2017-09-23 11:30 | disposition home or self-care (01) ==
LOC: HROP 06:36 → HRIP 06:37 → HROP 11:30
PROVIDERS: ATTEND Internal Medicine
DX: Z45.2 Encounter for adjustment and management of vascular access device (principal); C34.12 Malignant neoplasm of upper lobe, left bronchus or lung; J44.9 Chronic obstructive pulmonary disease, unspecified; F41.9 Anxiety disorder, unspecified; Z79.899 Other long term (current) drug therapy
CPT/HCPCS: 36561; 76937; 77001; 85610; 99152; 99153; C1788; J0690; J1642; J2250; J3010; J3370; J7030; J7050